=== PATIENT | female | born 1935 | race Caucasian/White ===

== ENCOUNTER 2018-07-30 12:07 | Outpatient (RCR) ==
[2018-08-02 12:44] VITALS: TEMP 208.2; BMI 18.2
[2018-08-25 14:47] VITALS: BP 118/54
== END 2018-08-26 23:59 ==
LOC: CAR.REHAB 12:07
PROVIDERS: ATTEND Internal Medicine Cardiovascular Disease
DX: Z95.2 Presence of prosthetic heart valve (principal); I50.21 Acute systolic (congestive) heart failure
CPT/HCPCS: 93798

== ENCOUNTER 2018-08-27 06:50 | Outpatient (RCR) ==
[2018-09-24 14:51] VITALS: BP 140/58
== END 2018-09-26 23:59 ==
LOC: CAR.REHAB 06:50
PROVIDERS: ATTEND Internal Medicine Cardiovascular Disease
DX: Z95.2 Presence of prosthetic heart valve (principal); I50.21 Acute systolic (congestive) heart failure
CPT/HCPCS: 93798

== ENCOUNTER 2018-09-14 07:07 | Outpatient (CLI) | END 2018-09-14 07:08 | disposition home or self-care (01) | LOC: LAB 07:07 | PROVIDERS: ATTEND Internal Medicine Infectious Disease | DX: B40.9 Blastomycosis, unspecified (principal); R91.8 Other nonspecific abnormal finding of lung field | CPT/HCPCS: 36415; 80053; 85025 ==

== ENCOUNTER 2018-09-27 09:14 | Outpatient (RCR) ==
[2018-10-22 14:14] VITALS: BP 130/56
== END 2018-10-26 23:59 ==
LOC: CAR.REHAB 09:14
PROVIDERS: ATTEND Internal Medicine Cardiovascular Disease
DX: Z95.2 Presence of prosthetic heart valve (principal); I50.21 Acute systolic (congestive) heart failure
CPT/HCPCS: 93798